=== PATIENT | female | born 1980 | race Caucasian/White ===

== ENCOUNTER 2019-09-18 09:59 | Inpatient (IN) | payer MEDICAID, OTHER ==
[~2019-09-18] VITALS: Ht 170.2 cm; Wt 51.7 kg
--- NOTE | 2019-09-18 10:20 | NUR ---
DR NAPIER, FAMILY RESIDENT, BS FOR EXAM
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
--- NOTE | 2019-09-18 10:28 | NUR ---
PT STATES "I SAW GABBY LECTOR LAST NIGHT" AND "I SAW PEOPLE FROM THE [facility] IN [facility], TOO."
[2019-09-18] MEDS ORDERED: SODIUM CHLORIDE 0.9% 1,000ML IVBOLUS ONE (10:30)
--- NOTE | 2019-09-18 10:42 | NUR ---
PT THINKS SHE TOOK JAYSON ASPIRIN THIS MORNING FOR THE PAIN.
--- NOTE | 2019-09-18 10:45 | NUR ---
EKG AT BS
[2019-09-18 10:46] LABS: BASOPHILS # (AUTO) 0.06 x10^3/uL (0-0.1); BASOPHILS % (AUTO) 1 % (0-1); EOSINOPHILS # (AUTO) 0.12 x10^3/uL (0-0.4); EOSINOPHILS % (AUTO) 1 % (1-7); LYMPHOCYTES % (AUTO) 19 % (22-44); MD NO; MEAN CORPUSCULAR HEMOGLOBIN 32.7 pg (27.0-34.8); MEAN CORPUSCULAR VOLUME 93.5 fL (80-100); MEAN PLATELET VOLUME 7.7 fL (7.4-10.4); MONOCYTES # (AUTO) 0.62 x10^3/uL (0.2-0.8); MONOCYTES % (AUTO) 6 % (2-9); NEUTROPHILS # (AUTO) 7.45 x10^3/uL (1.8-6.8); NEUTROPHILS % (AUTO) 73 % (42-75); PLATELET COUNT 241 x10^3/uL (130-400); RED BLOOD COUNT 4.13 x10^6/uL (3.82-5.3); RED CELL DISTRIBUTION WIDTH 12.8 % (9.6-15.2)
--- NOTE | 2019-09-18 10:50 | NUR ---
TO XR PER KEVIN
[2019-09-18 11:00] LABS: ALANINE AMINOTRANSFERASE 24 U/L (12-78); ALBUMIN 3.3 g/dL (3.4-5.0); ANION GAP 6 mmol/L (5-15); CALCIUM 8.7 mg/dL (8.5-10.1); CHLORIDE 107 mmol/L (98-107); CREATININE 0.68 mg/dL (0.55-1.02)
[2019-09-18 11:04] LABS: ALKALINE PHOSPHATASE 75 U/L (45-117); BILIRUBIN,TOTAL 0.3 mg/dL (0.2-1.0); TOTAL PROTEIN 7.3 g/dL (6.4-8.2)
[2019-09-18 11:38] LABS: MICROSCOPIC AUTO
[2019-09-18] MEDS ORDERED: VANCOMYCIN PER PHARMACY MC PRN ×2 (12:00→14:00)
[2019-09-18] MEDS ORDERED: AMPICILLIN/SULBACTAM 1,500 MG in SODIUM CHLORIDE 0.9% 50 ML IV SCH (12:00)
--- NOTE | 2019-09-18 12:20 | NUR ---
UNASYN ORDER CONFIRMED W/ DR SHERMAN
--- NOTE | 2019-09-18 12:24 | NUR ---
ENMA ORDERED FROM PHARMACY
--- NOTE | 2019-09-18 12:52 | NUR ---
PT REPORT TO AD SAMPSON RN
--- NOTE | 2019-09-18 12:56 | NUR ---
[facility]; INFUSING AT 100ML/HR VIA DIAL-AFLOW. IV SITE PATENT.
--- NOTE | 2019-09-18 12:59 | NUR ---
VIDHYA RECEIVED FROM PHARMACY; WILL BE SENT TO FLOOR W/ PT.
[2019-09-18] MEDS ORDERED: PHARMACOKINETIC MONITORING MC PRN (13:00)
[2019-09-18 13:22] VITALS: BP 130/76
[2019-09-18] MEDS ORDERED: CHLORHEXIDINE 15 ML UDC ONE (13:47)
[2019-09-18] MEDS ORDERED: DOCUSATE 100 MG CAPSULE PO PRN (14:00)
[2019-09-18] MEDS ORDERED: CHLORHEXIDINE 15 ML UDC MM ONE (14:00)
[2019-09-18] MEDS ORDERED: POLYETHYLENE GLYCOL 17 GM PACKET PO PRN (14:00)
[2019-09-18] MEDS ORDERED: ACETAMINOPHEN 325 MG TABLET PO PRN ×2 (14:00→14:30)
[2019-09-18] MEDS ORDERED: ONDANSETRON 2MG/ML, 2ML IVPush PRN ×2 (14:00→14:30)
[2019-09-18] MEDS ORDERED: DIPH,PERTUSS(ACELL),TET VAC/PF 0.5 ML IM-VACC ONE (14:00)
[2019-09-18] MEDS ORDERED: MIDAZOLAM 1 MG/ML, 2ML ONE (14:05)
[2019-09-18] MEDS ORDERED: FENTANYL PF 100 MCG/2ML ONE ×2 (14:05→14:45)
[2019-09-18] MEDS ORDERED: SUCCINYLCHOLINE 20 MG/ML, 10ML ONE ×2 (14:29→14:45)
[2019-09-18] MEDS ORDERED: PROPOFOL 10 MG/ML, 20ML ONE ×2 (14:29→14:45)
[2019-09-18] MEDS ORDERED: ONDANSETRON 2MG/ML, 2ML ONE ×2 (14:29→14:45)
[2019-09-18] MEDS ORDERED: LIDOCAINE PF 2%, 5ML ONE (14:29)
[2019-09-18] MEDS ORDERED: KETOROLAC 30 MG/1 ML ONE (14:29)
[2019-09-18] MEDS ORDERED: DEXAMETHASONE 4 MG/ML, 1ML ONE ×2 (14:29→14:45)
[2019-09-18] MEDS ORDERED: hydrALAzine 20 MG/ML, 1ML IV PRN (14:30)
[2019-09-18] MEDS ORDERED: OXYcodone 5 MG/5 ML ORAL.SOL UDC PO PRN (14:30)
[2019-09-18] MEDS ORDERED: FENTANYL PF 100 MCG/2ML IV PRN (14:30)
[2019-09-18] MEDS ORDERED: LABETALOL 5MG/ML, 20ML IV PRN (14:30)
[2019-09-18] MEDS ORDERED: HYDROcodone/APAP 7.5-325MG/15ML UDC PO PRN (14:30)
[2019-09-18] MEDS ORDERED: HYDROmorphone 1 MG/ML, 1ML INJ IVPush PRN (14:30)
[2019-09-18] MEDS ORDERED: PROMETHAZINE 25 MG/ML, 1ML IVPush PRN (14:30)
[2019-09-18] MEDS ORDERED: EPHEDRINE 50 MG/ML, 1ML IVPush PRN (14:30)
[2019-09-18 15:52] VITALS: BP 119/72
[2019-09-18] MEDS: VANCOMYCIN PMX 1GM/200ML 200 ML IV SCH (16:03)
[2019-09-18 17:15] VITALS: BP 120/81
[2019-09-18] MEDS: AMPICILLIN/SULBACTAM 3 GM in SODIUM CHLORIDE 0.9% 100 ML IV SCH ×2 (17:51→23:36)
[2019-09-18 18:39] VITALS: BP 114/70
[2019-09-18 21:56] VITALS: BP 103/74
[2019-09-19 01:56] VITALS: BP 107/79
[2019-09-19] MEDS: VANCOMYCIN PMX 1GM/200ML 200 ML IV SCH (03:48)
[2019-09-19] MEDS: AMPICILLIN/SULBACTAM 3 GM in SODIUM CHLORIDE 0.9% 100 ML IV SCH ×2 (05:22→12:27)
[2019-09-19 05:23] LABS: BASOPHILS # (AUTO) 0.03 x10^3/uL (0-0.1); BASOPHILS % (AUTO) 0 % (0-1); EOSINOPHILS % (AUTO) 0 % (1-7); LYMPHOCYTES # (AUTO) 1.89 x10^3/uL (1-3.4); LYMPHOCYTES % (AUTO) 17 % (22-44); MD NO; MEAN CORPUSCULAR HEMOGLOBIN 32.3 pg (27.0-34.8); MEAN CORPUSCULAR HGB CONC 34.4 g/dL (32.4-35.8); MEAN CORPUSCULAR VOLUME 93.7 fL (80-100); MEAN PLATELET VOLUME 8.2 fL (7.4-10.4); MONOCYTES # (AUTO) 0.42 x10^3/uL (0.2-0.8); MONOCYTES % (AUTO) 4 % (2-9); NEUTROPHILS # (AUTO) 8.79 x10^3/uL (1.8-6.8); NEUTROPHILS % (AUTO) 79 % (42-75); PLATELET COUNT 249 x10^3/uL (130-400); RED BLOOD COUNT 3.86 x10^6/uL (3.82-5.3); RED CELL DISTRIBUTION WIDTH 12.5 % (9.6-15.2)
[2019-09-19 05:33] LABS: ALBUMIN 2.5 g/dL (3.4-5.0); ANION GAP 6 mmol/L (5-15); CALCIUM 8.1 mg/dL (8.5-10.1); CHLORIDE 106 mmol/L (98-107)
[2019-09-19 05:37] LABS: ALANINE AMINOTRANSFERASE 18 U/L (12-78); ALKALINE PHOSPHATASE 67 U/L (45-117); BILIRUBIN,TOTAL 0.6 mg/dL (0.2-1.0); CREATININE 0.67 mg/dL (0.55-1.02); TOTAL PROTEIN 6.1 g/dL (6.4-8.2)
[2019-09-19 08:15] VITALS: BP 91/53
[2019-09-19] MEDS: ENOXAPARIN 40 MG/0.4 ML SQ SCH (08:49)
[2019-09-19] MEDS ORDERED: DIPH,PERTUSS(ACELL),TET VAC/PF 0.5 ML IM-VACC ONE (11:00)
[2019-09-19 13:11] VITALS: BP 97/58
[2019-09-19] MEDS: NICOTINE 21 MG/24 HR PATCH.TD24 TD SCH (14:28)
[2019-09-19] MEDS ORDERED: CEFAZOLIN 2,000 MG in SODIUM CHLORIDE 0.9% 50 ML IV SCH (16:00)
[2019-09-19 16:40] LABS: AMPHETAMINE SCREEN, URINE Negative (Negative); BARBITURATE SCREEN, URINE Negative (Negative); BENZODIAZEPINE SCREEN, URINE Positive (Negative); CANNABINOID SCREEN, URINE Positive (Negative); COCAINE SCREEN, URINE Negative (Negative); METHADONE SCREEN, URINE Negative (Negative); OPIATE SCREEN, URINE Negative (Negative)
[2019-09-19] MEDS: CEFAZOLIN PMX 2GM/50ML 50 ML IVPB SCH (16:59)
[2019-09-19 19:44] VITALS: BP 129/69
[2019-09-20 00:20] VITALS: BP 110/68
[2019-09-20] MEDS: CEFAZOLIN PMX 2GM/50ML 50 ML IVPB SCH ×3 (00:22→16:57)
[2019-09-20 05:29] LABS: BASOPHILS # (AUTO) 0.06 x10^3/uL (0-0.1); BASOPHILS % (AUTO) 1 % (0-1); EOSINOPHILS # (AUTO) 0.14 x10^3/uL (0-0.4); EOSINOPHILS % (AUTO) 2 % (1-7); LYMPHOCYTES # (AUTO) 2.82 x10^3/uL (1-3.4); LYMPHOCYTES % (AUTO) 40 % (22-44); MD NO; MEAN CORPUSCULAR HEMOGLOBIN 32.2 pg (27.0-34.8); MEAN CORPUSCULAR HGB CONC 34.4 g/dL (32.4-35.8); MEAN CORPUSCULAR VOLUME 93.7 fL (80-100); MEAN PLATELET VOLUME 7.9 fL (7.4-10.4); MONOCYTES # (AUTO) 0.44 x10^3/uL (0.2-0.8); MONOCYTES % (AUTO) 6 % (2-9); NEUTROPHILS # (AUTO) 3.56 x10^3/uL (1.8-6.8); NEUTROPHILS % (AUTO) 51 % (42-75); PLATELET COUNT 248 x10^3/uL (130-400); RED BLOOD COUNT 3.89 x10^6/uL (3.82-5.3); RED CELL DISTRIBUTION WIDTH 12.6 % (9.6-15.2)
[2019-09-20 06:46] VITALS: BP 111/9
[2019-09-20] MEDS: ENOXAPARIN 40 MG/0.4 ML SQ SCH (08:38)
[2019-09-20 13:06] VITALS: BP 110/69
[2019-09-20] MEDS: NICOTINE 21 MG/24 HR PATCH.TD24 TD SCH (14:35)
[2019-09-20 20:58] VITALS: BP 125/72
[2019-09-21 00:02] VITALS: BP 115/74
[2019-09-21 06:01] LABS: BASOPHILS # (AUTO) 0.04 x10^3/uL (0-0.1); BASOPHILS % (AUTO) 1 % (0-1); EOSINOPHILS # (AUTO) 0.14 x10^3/uL (0-0.4); EOSINOPHILS % (AUTO) 2 % (1-7); LYMPHOCYTES % (AUTO) 40 % (22-44); MD NO; MEAN CORPUSCULAR HEMOGLOBIN 32.6 pg (27.0-34.8); MEAN CORPUSCULAR HGB CONC 34.8 g/dL (32.4-35.8); MEAN CORPUSCULAR VOLUME 93.7 fL (80-100); MEAN PLATELET VOLUME 7.8 fL (7.4-10.4); MONOCYTES # (AUTO) 0.48 x10^3/uL (0.2-0.8); MONOCYTES % (AUTO) 7 % (2-9); NEUTROPHILS # (AUTO) 3.32 x10^3/uL (1.8-6.8); NEUTROPHILS % (AUTO) 51 % (42-75); PLATELET COUNT 257 x10^3/uL (130-400); RED BLOOD COUNT 4.13 x10^6/uL (3.82-5.3); RED CELL DISTRIBUTION WIDTH 12.3 % (9.6-15.2)
[2019-09-21 06:24] LABS: HCT (SEDRATE) 38.7 % (34.6-47.8)
[2019-09-21 07:23] VITALS: BP 122/74
[2019-09-21 07:51] LABS: HCT (SEDRATE) 38.7 % (34.6-47.8)
[2019-09-21] MEDS ORDERED: OXYcodone/APAP 5/325MG TABLET PO PRN (09:00)
[2019-09-21] MEDS: CEFAZOLIN PMX 2GM/50ML 50 ML IVPB SCH ×3 (09:04→17:20)
[2019-09-21] MEDS: ENOXAPARIN 40 MG/0.4 ML SQ SCH (09:04)
[2019-09-21 13:45] VITALS: BP 105/64
[2019-09-21] MEDS: NICOTINE 21 MG/24 HR PATCH.TD24 TD SCH (16:15)
[2019-09-21 18:59] VITALS: BP 110/70
[2019-09-22 01:06] VITALS: BP 154/78
[2019-09-22] MEDS: CEFAZOLIN PMX 2GM/50ML 50 ML IVPB SCH ×3 (01:45→16:44)
[2019-09-22 06:29] VITALS: BP 102/71
[2019-09-22] MEDS: ENOXAPARIN 40 MG/0.4 ML SQ SCH (09:39)
[2019-09-22] MEDS: NICOTINE 21 MG/24 HR PATCH.TD24 TD SCH (09:55)
[2019-09-22 13:24] VITALS: BP 123/80
[2019-09-22 18:24] VITALS: BP 144/77
[2019-09-23 00:17] VITALS: BP 103/67
[2019-09-23] MEDS: CEFAZOLIN PMX 2GM/50ML 50 ML IVPB SCH ×3 (01:14→18:33)
[2019-09-23 06:51] VITALS: BP 105/67
[2019-09-23] MEDS: ENOXAPARIN 40 MG/0.4 ML SQ SCH (08:34)
[2019-09-23 13:07] VITALS: BP 121/80
[2019-09-23] MEDS: NICOTINE 21 MG/24 HR PATCH.TD24 TD SCH (13:48)
[2019-09-23 19:42] VITALS: BP 121/78
[2019-09-24] MEDS: CEFAZOLIN PMX 2GM/50ML 50 ML IVPB SCH ×3 (01:34→19:40)
[2019-09-24 01:35] VITALS: BP 139/77
[2019-09-24 07:59] VITALS: BP 159/91
[2019-09-24] MEDS: ENOXAPARIN 40 MG/0.4 ML SQ SCH (09:27)
[2019-09-24] MEDS: NICOTINE 21 MG/24 HR PATCH.TD24 TD SCH (09:38)
[2019-09-24 14:43] VITALS: BP 116/78
[2019-09-24 15:51] LABS: MD NO
[2019-09-24 15:57] LABS: ALANINE AMINOTRANSFERASE 25 U/L (12-78); ANION GAP 6 mmol/L (5-15); BASOPHILS # (AUTO) 0.06 x10^3/uL (0-0.1); BASOPHILS % (AUTO) 1 % (0-1); CALCIUM 9.5 mg/dL (8.5-10.1); CHLORIDE 107 mmol/L (98-107); CREATININE 0.84 mg/dL (0.55-1.02); EOSINOPHILS # (AUTO) 0.08 x10^3/uL (0-0.4); EOSINOPHILS % (AUTO) 1 % (1-7); LYMPHOCYTES % (AUTO) 27 % (22-44); MEAN CORPUSCULAR HEMOGLOBIN 32.6 pg (27.0-34.8); MEAN CORPUSCULAR HGB CONC 34.7 g/dL (32.4-35.8); MEAN PLATELET VOLUME 7.1 fL (7.4-10.4); MONOCYTES # (AUTO) 0.88 x10^3/uL (0.2-0.8); MONOCYTES % (AUTO) 7 % (2-9); NEUTROPHILS # (AUTO) 7.75 x10^3/uL (1.8-6.8); NEUTROPHILS % (AUTO) 65 % (42-75); PLATELET COUNT 361 x10^3/uL (130-400); RED BLOOD COUNT 4.99 x10^6/uL (3.82-5.3); RED CELL DISTRIBUTION WIDTH 12.4 % (9.6-15.2)
[2019-09-24 16:00] LABS: ALKALINE PHOSPHATASE 81 U/L (45-117); BILIRUBIN,TOTAL 0.3 mg/dL (0.2-1.0)
[2019-09-24 17:49] LABS: AMPHETAMINE SCREEN, URINE Negative (Negative); BARBITURATE SCREEN, URINE Negative (Negative); BENZODIAZEPINE SCREEN, URINE Negative (Negative); CANNABINOID SCREEN, URINE Positive (Negative); COCAINE SCREEN, URINE Negative (Negative); METHADONE SCREEN, URINE Negative (Negative); OPIATE SCREEN, URINE Negative (Negative)
[2019-09-24 19:18] VITALS: BP 114/77
[2019-09-25 01:08] VITALS: BP 110/83
[2019-09-25] MEDS: CEFAZOLIN PMX 2GM/50ML 50 ML IVPB SCH ×3 (03:30→19:39)
[2019-09-25 07:38] VITALS: BP 141/89
[2019-09-25] MEDS: NICOTINE 21 MG/24 HR PATCH.TD24 TD SCH (08:59)
[2019-09-25] MEDS: ENOXAPARIN 40 MG/0.4 ML SQ SCH ×2 (08:59→09:05)
[2019-09-25 13:25] VITALS: BP 123/89
[2019-09-25] MEDS ORDERED: DIPHENHYDRAMINE 25 MG CAPSULE PO PRN (16:00)
[2019-09-25] MEDS ORDERED: LORazepam 1MG TABLET PO PRN (16:00)
[2019-09-25] MEDS: PALIPERIDONE 3 MG TAB.ER.24 PO SCH (16:00)
[2019-09-25] MEDS ORDERED: HALOPERIDOL 5 MG/ML IV PRN (16:30)
[2019-09-25] MEDS ORDERED: HALOPERIDOL 5 MG/ML IM PRN (16:30)
[2019-09-25] MEDS ORDERED: LORazepam 2 MG/ML, 1ML IVPush PRN (16:30)
[2019-09-25] MEDS ORDERED: BENZTROPINE 1 MG TABLET PO PRN (18:00)
[2019-09-25 20:04] VITALS: BP 99/69
[2019-09-26] MEDS: CEFAZOLIN PMX 2GM/50ML 50 ML IVPB SCH ×3 (03:26→19:27)
[2019-09-26 03:28] VITALS: BP 109/72
[2019-09-26] MEDS: ENOXAPARIN 40 MG/0.4 ML SQ SCH (08:00)
[2019-09-26] MEDS: PALIPERIDONE 3 MG TAB.ER.24 PO SCH (09:07)
[2019-09-26] MEDS: NICOTINE 21 MG/24 HR PATCH.TD24 TD SCH (09:07)
[2019-09-26 12:59] VITALS: BP 97/67
[2019-09-26 18:23] VITALS: BP 112/74
[2019-09-27 00:08] VITALS: BP 99/54
[2019-09-27] MEDS: CEFAZOLIN PMX 2GM/50ML 50 ML IVPB SCH ×2 (03:17→11:13)
[2019-09-27 06:30] VITALS: BP 106/69
[2019-09-27] MEDS: NICOTINE 21 MG/24 HR PATCH.TD24 TD SCH (09:23)
[2019-09-27] MEDS: ENOXAPARIN 40 MG/0.4 ML SQ SCH (09:23)
[2019-09-27] MEDS: PALIPERIDONE 3 MG TAB.ER.24 PO SCH (09:23)
[2019-09-27 13:08] VITALS: BP 121/78
[2019-09-27] MEDS ORDERED: CEFA2PLA9 INJ (13:32)
[2019-09-27] MEDS ORDERED: ACET325T26 PO (13:32)
[2019-09-27] MEDS ORDERED: BENZ1TAB61 PO (14:37)
[2019-09-27] MEDS ORDERED: PALI3TAB11 PO (14:37)
== END 2019-09-27 16:59 | DRG 513 ==
LOC: ED 12:00 → 3N 12:33 → SUATTDRO 12:51
PROVIDERS: ADMIT Internal Medicine; ATTEND Internal Medicine
PROC: 0X9J0ZZ Drainage of Right Hand, Open Approach (ICD-10-PCS; 2019-09-18)
PROC: 0LB70ZZ Excision of Right Hand Tendon, Open Approach (ICD-10-PCS; principal; 2019-09-18 13:15)
DX: M65.841 Other synovitis and tenosynovitis, right hand (principal); F23 Brief psychotic disorder; L03.113 Cellulitis of right upper limb; F10.239 Alcohol dependence with withdrawal, unspecified; L02.511 Cutaneous abscess of right hand; F17.210 Nicotine dependence, cigarettes, uncomplicated; F31.9 Bipolar disorder, unspecified; Z20.828 Contact with and (suspected) exposure to other viral communicable diseases; Z88.5 Allergy status to narcotic agent
CPT/HCPCS: 36415; 80053; 80307; 81001; 84702; 85025; 85651; 86140; 87040; 87070; 87075; 87077; 87086; 87147; 87186; 87205; 87635; 90715; 93005; 96360; C1729; G0378; J0295; J0690; J1100; J1650; J1885; J2250; J2405; J2704; J3010; J3370; J0330; J1630; J7030

== ENCOUNTER 2019-09-30 09:35 | Emergency (ER) | payer MEDICAID ==
[~2019-09-30] VITALS: Ht 170.2 cm; Wt 63.6 kg
[~2019-09-30 09:35] MED LIST: ACET325T26 PO; BENZ1TAB61 PO; CEFA2PLA9 INJ; PALI3TAB11 PO
[2019-09-30] MEDS ORDERED: ZIPRASIDONE 20 MG INJ IM ONE ×2 (09:55→10:00)
[2019-09-30] MEDS ORDERED: HALOPERIDOL 5 MG/ML ONE (09:57)
[2019-09-30] MEDS ORDERED: PLEASE ENTER HEIGHT AND WEIGHT MC SCH (10:00)
[2019-09-30] MEDS ORDERED: HALOPERIDOL 5 MG/ML IM PRN ×2 (10:00→11:30)
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
[2019-09-30] MEDS ORDERED: HALOPERIDOL 5 MG/ML IM ONE (10:30)
[2019-09-30 10:49] LABS: BARBITURATE SCREEN, URINE Negative (Negative); BENZODIAZEPINE SCREEN, URINE Positive (Negative); COCAINE SCREEN, URINE Negative (Negative); OPIATE SCREEN, URINE Negative (Negative)
[2019-09-30 10:50] LABS: AMPHETAMINE SCREEN, URINE Negative (Negative); CANNABINOID SCREEN, URINE Positive (Negative); METHADONE SCREEN, URINE Negative (Negative)
[2019-09-30] MEDS ORDERED: DIPHENHYDRAMINE 50 MG/ML, 1ML ONE ×2 (10:56→11:06)
[2019-09-30] MEDS ORDERED: LORazepam 2 MG/ML, 1ML ONE (10:56)
[2019-09-30] MEDS ORDERED: DIPHENHYDRAMINE 50 MG/ML, 1ML IM ONE (11:00)
[2019-09-30] MEDS ORDERED: LORazepam 1MG TABLET PO ONE (11:00)
[2019-09-30] MEDS ORDERED: DIPHENHYDRAMINE 50 MG/ML, 1ML IVPush ONE (11:00)
[2019-09-30] MEDS ORDERED: LORazepam 2 MG/ML, 1ML IVPush ONE (11:00)
--- NOTE | 2019-09-30 11:15 | NUR ---
PT GIVEN ADDITIONAL MEDICATIONS PER JUN. AFTER IV ATIVAN IV SITE BECAME INFILTRATED BEFORE GIVING BENADRYL, MD NOTIFIED AND BENADRYL GIVEN IM PER MD ORDER.
--- NOTE | 2019-09-30 11:17 | NUR ---
PT PLACED ON CONTINUOUS PULSE OX
[2019-09-30] MEDS ORDERED: LORazepam 2 MG/ML, 1ML IM PRN (11:30)
[2019-09-30] MEDS ORDERED: DIPHENHYDRAMINE 50 MG CAPSULE PO PRN (11:30)
[2019-09-30] MEDS ORDERED: HALOPERIDOL 5 MG TABLET PO PRN (11:30)
[2019-09-30] MEDS ORDERED: PALIPERIDONE 3 MG TAB.ER.24 PO SCH (11:30)
[2019-09-30] MEDS ORDERED: DIPHENHYDRAMINE 50 MG/ML, 1ML IM PRN (11:30)
--- NOTE | 2019-09-30 11:49 | NUR ---
PT RESTING IN GURNEY ON MONITOR WITH SITTER AT BEDSIDE. FOOD READY FOR PT WHEN COOPERATIVE.
[2019-09-30 11:54] LABS: BASOPHILS # (AUTO) 0.03 x10^3/uL (0-0.1); BASOPHILS % (AUTO) 0 % (0-1); EOSINOPHILS # (AUTO) 0.06 x10^3/uL (0-0.4); EOSINOPHILS % (AUTO) 1 % (1-7); LYMPHOCYTES # (AUTO) 1.84 x10^3/uL (1-3.4); LYMPHOCYTES % (AUTO) 23 % (22-44); MD NO; MEAN CORPUSCULAR HEMOGLOBIN 32.4 pg (27.0-34.8); MEAN CORPUSCULAR VOLUME 92.4 fL (80-100); MEAN PLATELET VOLUME 8.1 fL (7.4-10.4); MONOCYTES # (AUTO) 0.32 x10^3/uL (0.2-0.8); MONOCYTES % (AUTO) 4 % (2-9); NEUTROPHILS # (AUTO) 5.79 x10^3/uL (1.8-6.8); NEUTROPHILS % (AUTO) 72 % (42-75); PLATELET COUNT 234 x10^3/uL (130-400); RED BLOOD COUNT 3.98 x10^6/uL (3.82-5.3); RED CELL DISTRIBUTION WIDTH 12.6 % (9.6-15.2)
[2019-09-30 11:56] LABS: ALANINE AMINOTRANSFERASE 14 U/L (12-78); ALBUMIN 3.6 g/dL (3.4-5.0); ANION GAP 7 mmol/L (5-15); CHLORIDE 110 mmol/L (98-107); CREATININE 0.69 mg/dL (0.55-1.02)
[2019-09-30 12:00] LABS: ALKALINE PHOSPHATASE 58 U/L (45-117); BILIRUBIN,TOTAL 0.3 mg/dL (0.2-1.0); SALICYLATE LEVEL < 1.7 mg/dL (2.8-20.0); TOTAL PROTEIN 7.3 g/dL (6.4-8.2)
--- NOTE | 2019-09-30 12:05 | NUR ---
PT CALM AND COOPERATIVE AT THIS TIME, ABLE TO VERBALIZE UNDERSTANDING OF SITUATION AND CRITERIA FOR RESTRAINT REMOVAL. SECURITY CALLED TO REMOVE PT FROM RESTRAITNS
--- NOTE | 2019-09-30 13:06 | NUR ---
TASK RN NOTE: PT SITTING RECLINED IN BED. GIVEN MEAL TRAY. PT APPROPRIATE AT THIS TIME. SITTER OUTSIDE OF ROOM FOR DIRECT OBSERVATION AND Q15 MIN SAFETY CHECKS.
--- NOTE | 2019-09-30 13:40 | NUR ---
PT SLEEPING IN GURNEY WITH SITTER AT DOORWAY, PT ON SPO2 MONITOR. NO NEEDS AT THIS TIME
--- NOTE | 2019-09-30 14:19 | NUR ---
REQ SENT FOR INVEGEA FROM PHARMACY >1H AGO, CALLED PHARMACY TO RE-REQUEST
--- NOTE | 2019-09-30 15:05 | NUR ---
SPOKE WITH JAMIN SILVA AT [facility] ABOUT TRANSFER WITH ABX [facility] CANNOT DO IV ABX, REQUESTED EVALUATE WOUND FOR ORAL ABX
[2019-09-30] MEDS ORDERED: NEOSPORIN OINT. PKT 1 PACKET ONE (15:55)
--- NOTE | 2019-09-30 16:00 | NUR ---
WOUND CLEANSED AND DRESSED BY CYN JAIN. PT RESTING IN [facility], AWAITING TRANSFER TO [facility] @ 1700
[2019-09-30 16:08] VITALS: BP 122/68
[2019-09-30] MEDS ORDERED: LORazepam 1MG TABLET ONE (17:28)
--- NOTE | 2019-09-30 17:40 | NUR ---
PT BECAME VERY AGGRESSIVE WHEN [facility] CAME TO TRANSPORT PT TO [facility], [facility] UNCOMFORTABLE WITH TRANSPORTING PT. SW AND THROUGHPUT RN NOTIFIED, [facility] CALLED TO ESCORT PT ON HOLD BUT [facility] REFUSING AT THIS TIME. PT MEDICATED WITH ATIVAN, PT CALM AT THIS TIME. WILL TRY WITH [facility] LATER.
--- NOTE | 2019-09-30 18:47 | NUR ---
PT MORE CALM AND COOPERATIVE AFTER MEDICATION, PT AGREES TO TRANSFER TO [facility]. THROUGHPUT RN NOTIFIED
== END 2019-09-30 21:56 ==
LOC: ED 10:52
DX: F23 Brief psychotic disorder (principal); S61.031A Puncture wound without foreign body of right thumb without damage to nail, initial encounter; R45.851 Suicidal ideations; X58.XXXA Exposure to other specified factors, initial encounter; Y93.89 Activity, other specified; Y92.89 Other specified places as the place of occurrence of the external cause; Y99.8 Other external cause status
CPT/HCPCS: 36415; 80053; 80307; 84703; 85025; 96372; 96374; 96375; 99285; J1200; J1630; J2060